=== PATIENT | female | born 1965 | race Caucasian/White ===

== ENCOUNTER → 2024-08-16 | Outpatient (CLI) | payer OTHER ==
[~2024-08-16] MED LIST: ALLERGY RELIEF10 MG PO; MOBIC7.5 MG PO; MOTRIN800 MG PO; NORCO 10-325 T1 EACH PO; OMNICEF300 MG PO; PREDNISONE20 MG PO; TRAMADOL HCL50 MG PO
== END | disposition home or self-care (01) ==
LOC: RAD 10:24
PROVIDERS: ATTEND Chiropractor
DX: M47.817 Spondylosis without myelopathy or radiculopathy, lumbosacral region (principal); M48.061 Spinal stenosis, lumbar region without neurogenic claudication; M43.8X6 Other specified deforming dorsopathies, lumbar region; M54.50 Low back pain, unspecified